=== PATIENT | female | born 1985 ===

== ENCOUNTER → 2021-06-05 | Outpatient (REF) | LOC: M PLAIMG 14:35 | PROVIDERS: ATTEND Internal Medicine | DX: M25.561 Pain in right knee (principal); Z53.9 Procedure and treatment not carried out, unspecified reason ==

== ENCOUNTER → 2021-08-22 | Outpatient (REF) | LOC: M PLAIMG 10:43 | PROVIDERS: ATTEND Internal Medicine | DX: M25.551 Pain in right hip (principal) ==